=== PATIENT | male | born 1950 | race Caucasian/White ===

== ENCOUNTER → 2016-09-23 07:57 | Outpatient (CLI) | payer BC ==
[2014-03-14 10:58] VITALS: BMI 26.1
[~2016-09-23 07:57] MED LIST: ADVIL PM CAPLET1 TAB PO; CARDIZEM CD180 MG PO; CELEXA40 MG PO; ELIQUIS2.5 MG PO; HYDROCODONE-APA1 TAB PO; WELLBUTRIN75 MG PO; XANAX0.25 MG PO
== END | disposition home or self-care (01) ==
LOC: D.US 07:57
DX: R10.9 Unspecified abdominal pain (principal)

== ENCOUNTER → 2016-09-30 12:29 | Outpatient (CLI) | payer BC ==
[2014-03-14 10:58] VITALS: BMI 26.1
[~2016-09-30 12:29] MED LIST changes: +OXYCODONE HCL5 MG PO; +ROPINIROLE HCL2 MG PO
== END | disposition home or self-care (01) ==
LOC: D.NM 12:29
DX: R10.9 Unspecified abdominal pain (principal)

== ENCOUNTER 2016-10-14 06:29 | Day surgery (SDC) | payer BC, MEDICARE ==
[2016-10-13 11:11] LABS: BASOPHILS 0.6 % (0-2); EOSINOPHILS 6.4 % (0-7); HEMATOCRIT 42.1 % (42.0-54.0); HEMOGLOBIN 14.2 g/dL (13.5-17.5); IMMATURE GRANULOCYTES 0.1 % (0-5); LYMPHOCYTES 24.3 % (15-50); MCH 30.3 pg (26.0-34.0); MCHC 33.7 g/dL (31.0-37.0); MEAN PLATELET VOLUME 9.4 fL (7.4-10.4); MONOCYTES 12.3 % (2-11); NEUTROPHILS 56.3 % (40-80); PLATELET COUNT 184 10x3/uL (130-400); RBC 4.68 10x6/uL (4.20-6.10); RDW 12.8 % (11.5-14.5); WBC 6.8 10x3/uL (4.8-10.8)
[2016-10-13 11:45] LABS: ALBUMIN 3.6 g/dL (3.4-5.0); ALKALINE PHOSPHATASE 106 U/L (46-116); ALT (SGPT) 57 U/L (10-68); BILIRUBIN - TOTAL 0.69 mg/dL (0.2-1.3); CALC OSMOLALITY 277 mosm/kg (275-300); CALCIUM 8.7 mg/dL (8.5-10.1); CARBON DIOXIDE 26.9 mmol/L (21.0-32.0); CHLORIDE - SERUM 104 mmol/L (98-107); GLUCOSE 102 mg/dL (74-106); POTASSIUM - SERUM 4.3 mmol/L (3.5-5.1); SODIUM 138 mmol/L (136-145); UREA NITROGEN 18 mg/dL (7-18); eGFR NON AFRICAN AMERICAN 79 mL/min (90-120)
[2016-10-13 11:59] LABS: INR 1.1 (0.85-1.17); PROTIME 13.9 SECONDS (11.6-15.0)
[2016-10-13 12:01] LABS: APTT 35.7 SECONDS (22.8-39.4)
[~2016-10-14] VITALS: Ht 175.3 cm; Wt 81.6 kg
[~2016-10-14 06:29] MED LIST changes: -OXYCODONE HCL5 MG PO
[2016-10-14 06:30] VITALS: BP 135/70; Ht 175.3 cm; Wt 81.6 kg
--- NOTE | 2016-10-14 08:39 | NUR ---
pt states hx blood clots, no scd in place
[2016-10-14] MEDS ORDERED: OXYCODONE HCL5 MG PO (08:45)
--- NOTE | 2016-10-14 09:33 | NUR ---
THE PATIENT APPEARS VERY SEDATED AND REPORTS HE HAS BEEN TOLD HE HAS SLEEP APNEA
--- NOTE | 2016-10-15 08:20 | OP ---
PATIENT NAME: KAM MIRZA MEDICAL RECORD: [id number] :46 LOCATION:D[facility] ADMISSION DATE: SURGEON: NEELIMA CUNNINGHAM MD DATE OF OPERATION: 10/14/2016 SURGEON: Dr. Neelima Cunningham. PREOPERATIVE DIAGNOSES: 1. Biliary dyskinesia. 2. Right upper quadrant pain. POSTOPERATIVE DIAGNOSES: 1. Biliary dyskinesia. 2. Right upper quadrant pain. PROCEDURE PERFORMED: Laparoscopic cholecystectomy. ANESTHESIA: General. COMPLICATIONS: None. SPECIMENS: Gallbladder. Case was contaminated. ESTIMATED BLOOD LOSS: 30 cc. OPERATIVE COURSE: After consent was obtained, the patient was taken to the operating room and placed in the supine position on the operating table. Next, general anesthesia was given via endotracheal intubation. After timeout was performed that confirmed the correct patient and procedure, the abdomen was prepped and draped in typical sterile fashion. Local anesthetic was injected just above the umbilicus. A stab incision was made with 11-blade scalpel. Using a 5-mm bladeless optical trocar, the abdomen was entered under direct laparoscopic vision. Adequate pneumoperitoneum was achieved. The abdominal cavity was inspected. No evidence of bowel injury. No evidence of bleeding. The patient was then placed in steep reverse Trendelenburg position. At this time, all remaining trocars were placed after the administration of local anesthetic, two 5-mm trocars in the right upper quadrant, 11-mm trocar in the subxiphoid position. The fundus of the gallbladder was grasped and retracted cephalad. The infundibulum was grasped and retracted laterally. The peritoneum was incised using electrocautery. Blunt dissection was then performed with a [place] dissector until the critical view was obtained. The cystic duct lateral, cystic artery medial, liver in a posterior window. Three clips were placed in the proximal cystic artery, 1 clip distal, 3 clips were placed in the proximal cystic duct, 1 clip distal. The duct and artery were then transected with laparoscopic Metzenbaum scissors. The remaining portion of the gallbladder was dissected off the liver bed using electrocautery. Once complete, it was grasped with the tenaculum and removed through the 11-mm trocar and sent for permanent pathology. At this time, the entire operative field was copiously irrigated and suctioned. Careful attention was paid to hemostasis, which was obtained in the liver bed using electrocautery. Again, the operative site was copiously irrigated and suctioned. It was inspected. There was no evidence of bowel injury. No evidence of bleeding, no evidence of bile leak. There were 3 clips placed in the duct, 3 clips placed in the artery. At this time, the OPERATIVE REPORT [id number] KAM MIRZA abdominal cavity was inspected. No evidence of bowel injury. No evidence of bleeding. At this time, all remaining trocars removed. The abdomen was desufflated. Trocars were removed. Skin was closed with 4-0 Monocryl, Mastisol and Steri-Strips. At the end of the case, all needle and instrument counts were correct. No complications occurred. The patient was extubated and transferred to the PACU in stable condition. TRANSINT:[id number] Voice Confirmation ID: [id number] DOCUMENT ID: [id number] NEELIMA CUNNINGHAM MD at 0820 CC: [id number] DICTATION DATE: 10/14/16 08 SPRING INTERN: 10/14/16 1749 [facility] 10/14/16 [facility] [address] [place] [address]
== END 2016-10-14 11:25 | disposition home or self-care (01) ==
LOC: D.OPS 06:29 → D.PAN 08:00 → D.OPS 09:45 → D.PAN 09:45 → D.OPS 11:25
PROVIDERS: Anesthesiology
DX: K82.8 Other specified diseases of gallbladder (principal); K21.9 Gastro-esophageal reflux disease without esophagitis; M19.90 Unspecified osteoarthritis, unspecified site; Z01.812 Encounter for preprocedural laboratory examination

== ENCOUNTER 2019-11-07 06:29 | Outpatient (CLI) | payer MEDICARE, BC ==
[~2019-11-07] VITALS: Ht 175.3 cm; Wt 84.5 kg
--- NOTE | ~2019-11-07 | HEMODYNAMI ---
PATIENT:KAM MIRZA JR MEDICAL RECORD: [id number] : 46 LOCATION:D.[facility] ADMISSION DATE: 11/07/19 Generatedon:11/07/20199:36 Patient name: KAM MIRZA Patient #: [id number] SSN: [id number] : 1950 Date of study: 11/07/2019 Page: Of Hemodynamic Procedure Report Patient Data Patient Demographics Procedure consent was obtained First Name: KAM Gender: Male Last Name: YUKI Suffix: Jr Ibarra Initial: CARMINA : 1950 Patient #: [id number] Age: 69 year(s) Race: SSN: [id number] Additional ID: [id number] Contact details [address]: [address] [place] [address] State: [place] City: [place] Zip code: [address] Admission Admission Data Admission Date: 11/07/2019 Admission Time: 6:29 Arrival Date: 11/07/2019 Arrival Time: 0:00 Admit Source: Other Insurance Payor: Medicare [facility] #: [id number] Height (in.): 69 BSA: 2.01 (m2) Height (cm.): 175.26 BMI: 27.61 (kg/m2) Weight (lbs.): 187 Weight (kg.): 84.82 Lab Results Lab Result Date: 11/07/2019 Lab Result Time: 0:00 Biochemistry Name Units Result Min Max BUN mg/dl 18 --(---*)-- 7 18 Creatinine mg/dl 1.1 --(--*-)-- 0.6 1.3 eGFR ml/min 70.08432 *-(----)-- 90 120 NONAFRICAN CBC Name Units Result Min Max Hematocrit % 44.3 --(*---)-- 42 54 Hemoglobin g/dl 14.8 --(-*--)-- 13.5 17.5 Procedure Procedure Types Cath Procedure Diagnostic Procedure [facility] w/Coronaries Sedation Charges Moderate Sedation up to 15 minutes Procedure Description Procedure Date Procedure Date: 11/07/2019 Procedure Start Time: 9:15 Procedure End Time: 9:32 Procedure Staff Name Function Surekha Amadoren RT Scrub Melvin Daniel RN Nurse Angel Duffy MD Performing Physician Jenn Keenan RT Monitor Indication Angina Procedure Data Cath Procedure Fluoroscopy Diagnostic fluoroscopy Total fluoroscopy Time: 4.4 time: 4.4 min min Diagnostic fluoroscopy Total fluoroscopy dose: 801 dose: 801 mGy mGy Contrast Material Contrast Material Type Amount (ml) Isovue 370 61 Entry Location Entry Primary Successful Side Size Upsize Upsize Entry Closure Parada ccessful Closure Location (Fr) 1 (Fr) 2 (Fr) Remarks Device Remarks Radial Right 6 Fr Mechanical artery Short Compression Estimated blood loss: 5 ml Diagnostic catheters Device Type Used For End Catheter Placement DIAGNOSTIC [place] 110cm 5 Procedure Fr catheter ([id number]) DIAGNOSTIC Braxton 110cm Procedure 5Fr catheter (934497) Procedure Complications No complications Procedure Medications Medication Administration Route Dosage Oxygen etCO2 Nasal cannula 2 l/min Lidocaine 2% added to field 20 Heparin Flush Bag added to field 2 bags (1000units/500ml NS) 0.9% NaCl I.V. 100 ml/hr Versed I.V. 1 mg Fentanyl I.V. 50 mcg Versed I.V. 1 mg Fentanyl I.V. 50 mcg Versed I.V. 0.5 mg Radial Cocktail I.A. 1 syringe (Verapamil 2mg/Nitro 400mcg/Heparin 1500units) Hemodynamics Rest BSA: 2.01 (m2) HGB: 14.8 (g/dl) O2 Consumption: Estimated: 248.21 (ml/min) O2 Co nsumption indexed: Estimated:123.49 (ml/min/m) Heart Rate: 91 (bpm) Pressure Samples Time Site Value (mmHg) Purpose Heart Use Rate(bpm) 9:21 LV 105/20,29 Snapshot 81 Gradients Valve Time Site Site Mean SEP/DFP Peak To Heart Use 1 2 (mmHg) (sec/min) Peak Rate (mmHg) (bpm) Aortic 9:21 LV AO 104 Snapshots Pre Cath Intra NCS Post Cath Vital Signs Time Heart Resp SPO2 NIBP (mmHg) Rhythm Pain Sedation Rate (ipm) (%) Status Level (bpm) 8:44:27 90 17 96 127/97(104) NSR 0 (11) 10(A) , No pain 8:48:35 89 17 95 131/80(97) NSR 0 (11) 10(A) , No pain 8:52:39 93 18 94 120/86(96) NSR 0 (11) 10(A) , No pain 8:56:47 91 17 96 116/75(88) NSR 0 (11) 10(A) , No pain 9:00:53 87 12 97 116/74(87) NSR 0 (11) 10(A) , No pain 9:05:00 100 25 98 115/74(97) NSR 0 (11) 10(A) , No pain 9:09:04 86 18 93 115/76(89) NSR 0 (11) 9(A) , No pain 9:13:10 84 13 97 113/73(85) NSR 0 (11) 9(A) , No pain 9:17:14 86 15 95 117/81(104) NSR 0 (11) 9(A) , No pain 9:21:26 92 15 99 103/63(75) NSR 0 (11) 9(A) , No pain 9:25:28 86 14 94 109/74(93) NSR 0 (11) 9(A) , No pain 9:29:33 89 17 94 117/68(78) NSR 0 (11) 10(A) , No pain Medications Time Medication Route Dose Verified Delivered Reason Notes Effectiveness by by 8:44:09 Oxygen etCO2 2 l/min Angel Buffie used for Nasal Clive Daniel RN procedure cannula 8:44:14 Lidocaine 2% added 20ml Angel Angel for local to vial Clive Duffy MD anesthetic field 8:44:22 Heparin Flush added 2 bags Angel Angel used for Bag to Clive Duffy MD procedure (1000units/500ml field NS) 8:44:30 0.9% NaCl I.V. 100 Angel Buffie Per ml/hr Clive Daniel RN physician 9:04:20 Versed I.V. 1 mg Angel Buffie for sedation Clive Daniel RN 9:04:26 Fentanyl I.V. 50 mcg Angel Buffie for sedation Clive Daniel RN 9:11:47 Versed I.V. 1 mg Angel Buffie for sedation Clive Daniel RN 9:11:51 Fentanyl I.V. 50 mcg Angel Buffie for sedation Clive Daniel RN 9:17:09 Versed I.V. 0.5 mg Angel Buffie for sedation Clive Daniel RN 9:18:00 Radial Cocktail I.A. 1 Angel Angel for (Verapamil syringe Clive Duffy MD vasodilation 2mg/Nitro 400mcg/Hepari Procedure Log Time Note 7:58:58 Informed consent obtained and on chart 7:59:13 Diagnostic Cath Status : Elective 7:59:34 Arrival Date: 11/07/2019 12:00:00 AM 7:59:35 Admit Source: Other 7:59:38 Insurance Payor : Medicare 8:00:32 Patient Height : 69 inches 8:00:36 Patient Weight : 187 lbs 8:28:48 Indication : Angina 8:30:00 Melvin Daniel RN sent for patient. Start room use. 8:35:08 Time tracking: Regular hours (M-F 7:00 - 5:00) 8:35:13 Plan of Care:Hemodynamics will remain stable., Cardiac rhythm will remain stable., Comfort level will be maintained., Respiratory function will remain adequate., Patient/ family verbilizes understanding of procedure., Procedure tolerated without complication., Recovers from procedure without complications.. 8:35:23 Procedure Status Elective Heart Cath (OP). 8:35:48 H&P Date Dictated: 10/24/2019 Within 30 days and on chart.. 8:35:49 Pre-op teaching completed and patient verbalized understanding. 8:35:49 Pre-procedure instructions explained to patient. 8:35:52 Family in patients room. 8:35:54 Patient NPO since Midnight. 8:35:56 Is the patient allergic to Iodine/contrast media? No. 8:37:45 Lab Result : eGFR NONAFRICAN 70.71235 ml/min 8:37:45 Lab Result : Creatinine 1.1 mg/dl 8:37:45 Lab Result : BUN 18 mg/dl 8:43:35 Patient received from Pre/Post Procedure Room to CCL 2 Alert and oriented. Tansferred to table in Supine position. 8:43:36 Warm blankets applied, and bradly hugger turned on for patient comfort. 8:43:37 ECG and BP/O2 sat monitors applied to patient. 8:43:37 Correct patient and procedure confirmed by team. 8:43:38 Vital chart was started 8:43:39 Baseline sample Acquired. 8:43:49 Rhythm: sinus tachycardia 8:43:51 Full Disclosure recording started 8:43:55 Was the patient premedicated? Yes 8:43:56 Is patient on blood thinner?No 8:43:58 Patient diabetic? No. 8:44:00 Previous problem with sedation/anesthesia? No ? 8:44:02 Snore? Yes 8:44:03 Sleep apnea? No 8:44:04 Opens mouth fully? Yes 8:44:04 Deviated septum? No 8:44:05 Sticks out tongue? Yes 8:44:09 Oxygen 2 l/min etCO2 Nasal cannula was administered by Melvin Daniel RN; used for procedure; Verbal order read back and verified. 8:44:14 Airway obstruction? Yes asthma, emphysema 8:44:14 Lidocaine 2% 20ml vial added to field was administered by Angel Duffy MD; for local anesthetic; Verbal order read back and verified. 8:44:18 Dentures? No ? 8:44:22 Heparin Flush Bag (1000units/500ml NS) 2 bags added to field was administered by Angel Duffy MD; used for procedure; Verbal order read back and verified. 8:44:30 0.9% NaCl 100 ml/hr I.V. was administered by Melvin Daniel RN; Per physician; Verbal order read back and verified. 8:51:32 Baseline sample Acquired. 8:51:45 Pre procedure: right dorsailis pedis pulse 2+ Normal; easily identifiable; not easily obliterated 8:51:47 Modified Quique's test Ulnar < 7 seconds 8:51:50 Patient pain scale 1/10 ?. 8:51:58 IV patent on arrival in left antecubital with 0.9% NaCl at [facility]. 8:52:03 Lab results completed and on chart. 8:52:06 Stress Test: no; N/A ? 8:52:11 Right Radial & Right Groin area was prepped with chlora-prep and draped in sterile fashion 8:52:13 Sharps counted by scrub and verified by R.N. 8:52:13 Alarms reviewed by R. N. 8:52:17 Use device set Radial Dx or PCI 8:52:19 Medline Cath Pack ([id number]) opened to sterile field. 8:52:19 ACIST Syringe (27038) opened to sterile field. 8:52:20 ACIST Hand Control (32590) opened to sterile field. 8:52:20 Bag Decanter () opened to sterile field. 8:52:21 ACIST Manifold (43765) opened to sterile field. 8:52:22 MBrace Wrist Support ([id number]) opened to sterile field. 8:52:23 NEEDLE Cook 21G 4cm Radial (Q05249) opened to sterile field. 8:52:26 SHEATH 6FR RAIN (5589127) opened to sterile field. 8:52:26 EMERALD Guide Wire (299-127) opened to sterile field. 8:54:54 Lab Result : Hematocrit 44.3 % 8:54:54 Lab Result : Hemoglobin 14.8 g/dl 9:02:00 Final Timeout: patient, procedure, and site verified with staff and physician. All members of the team are in agreement. 9:02:00 --------ALL STOP TIME OUT------ 9:02:02 Right Radial & Right Groin site verified by team. 9:02:06 Fire Safety Assessment: A--An alcohol-based skin anteseptic being used preoperatively., C--Open oxygen or nitrous oxide is being used., D--An ESU, laser, or fiber-optic light is being used. 9:02:09 Physical assessment completed. ASA score P 2 - A patient with mild systemic disease as per Angel Duffy MD. 9:02:13 2) 60-89 Mildly reduced kidney function, and other findings (as for stage 1) point to kidney disease. 9:02:18 Maximum allowable contrast dose (3.7 X eGFR X 0.75)194 ml. 9:02:22 Sedation plan: IV Moderate Sedation Medication:Versed, Fentanyl 9:04:20 Versed 1 mg I.V. was administered by Melvin Daniel RN; for sedation; Verbal order read back and verified. 9:04:26 Fentanyl 50 mcg I.V. was administered by Melvin Daniel RN; for sedation; Verbal order read back and verified. 9:11:47 Versed 1 mg I.V. was administered by Melvin Daniel RN; for sedation; Verbal order read back and verified. 9:11:51 Fentanyl 50 mcg I.V. was administered by Melvin Daniel RN; for sedation; Verbal order read back and verified. 9:15:43 Procedure started. 9:15:47 Local anesthetic to right femoral artery with Lidocaine 2% by Angel Duffy MD.INITIAL ACCESS ONLY 9:17:09 Versed 0.5 mg I.V. was administered by Melvin Daniel RN; for sedation; Verbal order read back and verified. 9:18:00 Radial Cocktail (Verapamil 2mg/Nitro 400mcg/Heparin 1500units) 1 syringe I.A. was administered by Angel Duffy MD; for vasodilation; Verbal order read back and verified. 9:18:39 A 6 Fr Short sheath was inserted into the Right Radial artery 9:18:48 A DIAGNOSTIC [place] 110cm 5 Fr catheter ([id number]) was advanced over the wire and used for Procedure. 9:19:49 LV gram done using AVILEZ 9:21:07 Injector settings: Ml/sec: 5, Volume: 15, 9:21:09 LV hemodynamics recorded. 9:21:22 EF : 15 % 9:22:08 LCA angiography performed. 9:22:26 Injector settings: Ml/sec: 3, Volume: 6, 9:24:42 Catheter exchanged over wire. 9:25:48 A DIAGNOSTIC [place] 110cm 5Fr catheter (508219) was advanced over the wire and used for Procedure. 9:26:13 GLIDE WIRE ANGLE 260cm ([id number]) opened to sterile field. 9:26:38 RCA angiography performed. 9:26:41 Injector settings: Ml/sec: 3, Volume: 6, 9:27:34 Catheter removed. 9:28:24 ZEPHYR REGULAR TR BAND (379188) opened to sterile field. 9:28:45 Sheath removed intact; hemostasis achieved with Mechanical Compression to the Right Radial artery. 9:28:48 Procedure ended.(Physican Out) 9:29:21 Fluoroscopy time 04.40 minutes. 9:29:27 Fluoroscopy dose: 801 mGy 9:29:27 Flurop Dose total: 801 9:29:33 Dose Area Product 58580 mGy/cm. 9:29:36 Contrast amount:Isovue 370 61ml. 9:29:40 Maximum allowable dose exceeded? No. 9:29:42 Sharps counted by scrub and verified by R.N. 9:29:45 Sharon band inflated with 10cc of air. 9:29:46 Post Procedure Pulses reassessed and unchanged 9:29:49 Post procedure: right dorsailis pedis pulse 2+ Normal; easily identifiable; not easily obliterated. 9:29:55 Post-procedure physical assessment completed. ASA score P 2 - A patient with mild systemic disease as per Angel Duffy MD. 9:29:59 Post procedure rhythm: unchanged. 9:30:01 Estimated blood loss: 5 ml 9:30:03 Patient needs reinforcement of post procedure teaching. 9:30:03 Post procedure instruction explained to patient.Patient verbalizes understanding. 9:30:38 Procedure type changed to Cath procedure, Diagnostic procedure, LHC, C w/Coronaries, Sedation Charges, Moderate Sedation up to 15 minutes 9:31:01 Procedure and supply charges have been captured, reviewed, submitted and are correct. 9:31:05 Procedure Complication : No complications 9:31:07 Vital chart was stopped 9:31:10 [facility] Findings: mild to moderate CAD (<70%) 9:31:13 Operative report dictated upon procedure completion. 9:31:14 See physician's report for complete and final results. 9:31:19 Report given to Pre/Post Procedure Room. 9:31:41 Patient transfered to Pre/Post Procedure Room with Stretcher. 9:31:59 Full Disclosure recording stopped 9:31:59 Procedure ended. 9:32:16 End room use (Document Last) 9:32:40 End room use (Document Last) 9:33:19 End room use (Document Last) Device Usage Item Name Manufacture Quantity Catalog Hospital Part Current Minima l Lot# / Number Charge Number Stock Stock Serial# Code ACIST Acist 1 58319 047906 637171 068179 20 Syringe Medical (87085) Systems Inc Medline Medline 1 [id number] 617860 82160 626809 5 Cath Pack ([id number]) Bag Microtek 1 970282 83449 628005 5 Decanter Medical Inc. () ACIST Hand Acist 1 04376 694304 909813 391805 5 Control Medical (63408) Systems Inc ACIST Acist 1 37156 711108 937763 711058 5 Manifold Medical (64154) Systems Inc [employer] Advanced 1 140-0250-00 547436 77094 265524 5 Wrist Vascular Support Dynamics ([id number]) NEEDLE Cook Cook Medical 1 A68779 274492 866583 381173 5 21G 4cm Radial (Q57529) EMERALD Cardinal 1 502-455 206947 244658 175541 5 Guide Wire Health (502455) SHEATH 6FR Cardinal 1 6425370 693073 0785155 562562 5 RAIN Health (1517930) DIAGNOSTIC Terumo 1 40-5013 589272 561934 173331 5 [place] 110cm 5 Fr catheter (982330) DIAGNOSTIC Terumo 1 40-5023 309651 690817 336827 5 Braxton 110cm 5Fr catheter (095975) GLIDE WIRE Terumo 1 NW4574 535179 799467 657136 5 ANGLE 260cm (JK9560) ZEPHYR Cardinal 1 323098 019981 8993449 397540 5 REGULAR TR Health BAND (393538) Signature Audit [place] Stage Time Signature Unsigned Intra-Procedure 11/07/2019 Jenn Keenan 9:32:40 AM RT(R) Intra-Procedure 11/07/2019 Melvin Daniel RN 9:33:19 AM Intra-Procedure 11/07/2019 Angel Duffy MD 9:33:36 AM 11/07/2019 9:35:26 AM Intra-Procedure 11/07/2019 Angel Duffy MD 9:36:12 AM Signatures Nurse : Melvin Daniel RN Signature : Date : Time : Performing Physician : Signature : Angel Duffy MD Date : Time : Monitor : Jenn Keenan Signature : RT Date : Time : [address] [place] [address]
[~2019-11-07 06:29] MED LIST changes: +OXYCODONE HCL5 MG PO
[2019-11-07] MEDS ORDERED: SYMBICORT 16010.2 GM INH (07:47)
[2019-11-07] MEDS ORDERED: TRAZODONE HCL150 MG PO (07:47)
[2019-11-07] MEDS ORDERED: COREG CR10 MG PO (07:47)
[2019-11-07] MEDS ORDERED: HCTZ25 MG PO (07:48)
[2019-11-07] MEDS ORDERED: ALBUTEROL SULF8.5 GM INH (07:49)
[2019-11-07] MEDS ORDERED: ROPINIROLE HCL4 M1 PO (07:49)
[2019-11-07] MEDS ORDERED: ENTRESTO 24 MG1 EACH PO (07:50)
[2019-11-07 08:00] VITALS: BP 117/77; Ht 175.3 cm; Wt 84.5 kg
[2019-11-07 08:35] LABS: ANION GAP 13.1 mmol/L (8-16); CALCIUM 8.5 mg/dL (8.5-10.1); CARBON DIOXIDE 24.9 mmol/L (21.0-32.0); CHOL - HDL RATIO 2.3 ratio (2.3-4.9); CREATININE - SERUM 1.1 mg/dL (0.6-1.3)
[2019-11-07 08:48] LABS: BASOPHILS 0.6 % (0-2); EOSINOPHILS 3.2 % (0-7); HEMATOCRIT 44.3 % (42.0-54.0); HEMOGLOBIN 14.8 g/dL (13.5-17.5); IMMATURE GRANULOCYTES 0.1 % (0-5); LYMPHOCYTES 24.4 % (15-50); MCH 30.4 pg (26.0-34.0); MCHC 33.4 g/dL (31.0-37.0); MEAN PLATELET VOLUME 9.8 fL (7.4-10.4); MONOCYTES 11.9 % (2-11); NEUTROPHILS 59.8 % (40-80); PLATELET COUNT 142 10x3/uL (130-400); RBC 4.87 10x6/uL (4.20-6.10); RDW 13.7 % (11.5-14.5); WBC 6.8 10x3/uL (4.8-10.8)
--- NOTE | 2019-11-07 09:45 | NUR ---
PT RECEIVED BACK TO ROOM VIA STRETCHER FROM [employer]ICE MANAGER FOR RECOVERY. PT AWAKE BUT DROWSY, PT DENIES PAIN OR DISCOMFORT. ZYPHER BAND AND IMMOBILIZER TO R WRIST/ARM, DRESSING CDI NO S/S HEMATOMA OR BLEEDING NOTED. PT INSTRUCTED TO KEEP ARM STILL POSSIBLE AND NOT TO USE IT. HE VERBALIZED UNDERSTANDING. PT PLACED ON CARDIAC MONITORS AND O2 VIA NC AT 2L. HR NSR RATE 88, BP 107/67, RR 13, SAT 94. IV PATENT INFUSING VIA ORDERS TO L HAND. CALL LIGHT IN REACH, SIPS OF WATER GIVEN. AT BS.
--- NOTE | 2019-11-07 10:15 | NUR ---
PT RESTING W/O COMPLAINTS, ZYPHER BAND AND IMMOBILIZER IN PLACE, DRESSING REMAINS CDI NO S/S HEMATOMA OR BLEEDING NOTED. CAP REFILL BRISK. HR 80, BP 99/68, RR 14, SAT 96. CALL LIGHT IN REACH, AT BS
--- NOTE | 2019-11-07 10:55 | NUR ---
3CC AIR REMOVED FROM Z BAND, NO BLEEDING OR S/S HEMATOMA NOTED. DRESSING REMAINS CDI. HOB ELEVATED, SANDWICH AND DRINK SERVED. O2 REMOVED, SAT 96 ON ROOM AIR. AT BS, PT DENIES PAIN OR NEEDS
--- NOTE | 2019-11-07 11:10 | NUR ---
PT DOING WELL, TOLERATED LUNCH. VSS. 3 ADD'L CC AIR REMOVED FROM Z BAND, NO BLEEDING OR S/S HEMATOMA NOTED. VSS. CALL LIGHT IN REACH
--- NOTE | 2019-11-07 11:31 | NUR ---
DISCHARGE INSTRUCTIONS REVIEWED W PT AND , BOTH VERBALIZED UNDERSTANDING. IV REMOVED W CATH INTACT, MONITORS REMOVED. PT UP TO DRESS, ZBAND AND IMMOBILIZER REMAIN IN PLACE.
--- NOTE | 2019-11-07 11:39 | NUR ---
PT AMBULATED TO BR, VOIDING W/O DIFFICULITY. 1145 ZBAND, REMAINING AIR AND IMMOBILIZER REMOVED NO BLEEDING OR HEMATOMA NOTED. 2X2 AND SM TEGADERM DRESSING APPLIED. 1150 PT DISCHARGED VIA WC TO WAITING IN PRIVATE VEHICLE. PT HAD ALL BELONGINGS AND DISCHARGE PAPERWORK IN HAND.
== END 2019-11-07 11:50 | disposition home or self-care (01) ==
LOC: D.CATH 06:29
PROVIDERS: ATTEND Internal Medicine Cardiovascular Disease
DX: I42.9 Cardiomyopathy, unspecified (principal)

== ENCOUNTER → 2020-02-01 18:15 | Outpatient (CLI) | payer MEDICARE, BC ==
[2019-11-07 08:00] VITALS: BMI 27.5
[~2020-02-01 18:15] MED LIST changes: +ALBUTEROL SULF8.5 GM INH; +COREG CR10 MG PO; +ENTRESTO 24 MG1 EACH PO; +HCTZ25 MG PO; +ROPINIROLE HCL4 M1 PO; +SYMBICORT 16010.2 GM INH; +TRAZODONE HCL150 MG PO
[2020-02-01 18:52] LABS: BASOPHILS 0.6 % (0-2); EOSINOPHILS 4.1 % (0-7); IMMATURE GRANULOCYTES 0.3 % (0-5); LYMPHOCYTES 25.6 % (15-50); MCH 30.7 pg (26.0-34.0); MCHC 33.3 g/dL (31.0-37.0); MCV 92.1 fL (80.0-100.0); MEAN PLATELET VOLUME 9.7 fL (7.4-10.4); MONOCYTES 10.2 % (2-11); NEUTROPHILS 59.2 % (40-80); RBC 4.56 10x6/uL (4.20-6.10); RDW 13.9 % (11.5-14.5); WBC 6.2 10x3/uL (4.8-10.8)
[2020-02-01 18:54] LABS: PLATELET COUNT 189 10x3/uL (130-400)
[2020-02-01 19:09] LABS: ALBUMIN 3.8 g/dL (3.4-5.0); ANION GAP 13.6 mmol/L (8-16); BILIRUBIN - TOTAL 0.81 mg/dL (0.2-1.3); CALCIUM 8.4 mg/dL (8.5-10.1); CARBON DIOXIDE 24.3 mmol/L (21.0-32.0); CREATININE - SERUM 1.2 mg/dL (0.6-1.3); POTASSIUM - SERUM 4.9 mmol/L (3.5-5.1); PROTEIN - SERUM 6.5 g/dL (6.4-8.2)
[2020-02-01 19:14] LABS: INR 1.03 (0.85-1.17); PROTIME 13.4 SECONDS (11.6-15.0)
== END | disposition home or self-care (01) ==
LOC: D.LABREF 18:15
PROVIDERS: ATTEND Internal Medicine Interventional Cardiology
DX: I42.0 Dilated cardiomyopathy (principal)